=== PATIENT | female | born 1970 | race Caucasian/White ===

== ENCOUNTER → 2016-10-28 | Outpatient (CLI) | payer BC ==
[~2016-10-28] MED LIST: ADVIN10050 INH
== END | disposition home or self-care (01) ==
LOC: C.PAPS 11:54
DX: Z01.419 Encounter for gynecological examination (general) (routine) without abnormal findings (principal)

== ENCOUNTER 2017-01-19 16:21 | Emergency (ER) | payer BC ==
[~2017-01-19] VITALS: Ht 170.2 cm; Wt 59.1 kg
[2017-01-19 16:24] VITALS: Ht 170.2 cm; Wt 59.1 kg
[2017-01-19] MEDS ORDERED: ASPIRIN 81 MG CHEW PO STA (16:55)
[2017-01-19 17:33] LABS: BASO % 0.3 %; BASO ABS # 0.03 K/uL (0-0.2); COMPLETE YES; EOS % 3.8 %; HEMATOCRIT 40.2 % (37-47); IG% 0.1 %; LYMPH % 22.9 %; LYMPH ABS # 2.34 K/uL (1.2-3.4); MEAN CELL VOLUME 87.6 fL (80-100); MEAN CORPUSCULAR HEMOGLOBIN 29.6 pg (25-34); MEAN CORPUSCULAR HGB CONC 33.8 g/dl (32-36); MEAN PLATELET VOLUME 10.1 fL (7.4-10.4); MONO % 6.9 %; PLATELET COUNT 233 K/uL (130-400); RED BLOOD COUNT 4.59 M/uL (4.2-5.4); WHITE BLOOD COUNT 10.23 K/uL (4.8-10.8)
[2017-01-19 17:41] LABS: BLOOD UREA NITROGEN 13 mg/dl (7-18); BUN/CREATININE RATIO 18.5 (10-20); CALCIUM 8.5 mg/dl (8.5-10.1); CARBON DIOXIDE 30 mmol/L (21-32); CHLORIDE 108 mmol/L (98-107); CREATININE 0.68 mg/dl (0.60-1.20); GLUCOSE 123 mg/dl (70-99); POTASSIUM 3.4 mmol/L (3.5-5.1); SODIUM 144 mmol/L (136-145)
[2017-01-19 17:45] LABS: CKMB/CK RATIO 1.7 (0-3.0)
--- NOTE | 2017-01-19 17:45 | DIAGNOSTIC IMAGING REPORT ---
CHEST ONE VIEW PORTABLE CLINICAL HISTORY: Chest Pain dyspnea COMPARISON STUDY: No previous studies for comparison. FINDINGS: The bones soft tissues and hemidiaphragms are normal. The cardiomediastinal silhouette is normal. The lungs are clear. The pulmonary vasculature is normal. IMPRESSION: Negative chest. Electronically signed by: Moe Warren M.D. 01/19/2017 5:44 PM Dictated Date/Time: 01/19/2017 5:44 PM
[2017-01-19] MEDS ORDERED: KETOROLAC TROMETHAMINE 30 MG/ML VIAL IV STA (18:36)
[2017-01-19 19:20] VITALS: BP 120/78; PULSE 79; TEMP 37; O2SAT 99
--- NOTE | 2017-01-19 22:17 | EMERGENCY ROOM VISIT NOTE ---
History Report prepared by Eron: Veda Peterson Under the Supervision of: Dr. Luther Ibanez D.O. First contact with patient: 16:40 Chief Complaint: REFERRED BY DOCTOR Stated Complaint: CARDIAC ASSESSMENT,SENT BY History of Present Illness The patient is a 46 year old female who presents to the Emergency Room with complaints of persistent chest tightness starting this morning. One week ago, she had some left arm tingling. She also had pain when she lifted up her arm. She went to the walk in clinic and did an EKG. She was told to follow up with her PCP for an echo. Yesterday she started having a shooting and throbbing pain through her left nipple. She experienced it once yesterday evening and it woke her in the middle of the night last night. The pain is currently aching. The pain worsens with breathing. It does not change with palpation. She states that it feels like there is something sitting on her chest and this has been present since this morning but feels like her asthma. She has a history of seasonal asthma. Her chest tightness does feel like her asthma, but her inhaler has not been helping. Her chest tightness has also never been this severe. She feels like she cannot breathe. She denies any rashes or swelling of the calves. She denies any history of diabetes, hypertension, CAD or high cholesterol. She does not smoke. She admits to occasional alcohol use. She recently went on a trip. She denies any history of cancer, swelling of her calves, hemoptysis, previous blood clots. She denies any estrogen use. She had an echo 2 years ago which was normal. Source of History: patient Onset: this morning Position: chest Quality: other (tightness) Timing: other (persistent) Associated Symptoms: + SOB, No rash Note: Pt reports shooting pain through nipple, left arm tingling, left arm pain. Pt denies calf swelling. Review of Systems See HPI for pertinent positives & negatives. A total of 10 systems reviewed and were otherwise negative. Past Medical & Surgical Medical Problems: (1) Asthma Surgical Problems: (1) History of eye surgery Family History Diabetes mellitus FH: cancer FH: heart disease Hypertension Social History Smoking Status: Never Smoker Alcohol Use: occasionally Marital Status: Housing Status: lives with family Occupation Status: employed Current/Historical Medications Scheduled Fluticasone Prop/Salmeterol (Advair Diskus 100-50 Mcg/Dose), 1 PUFFS INH BID Allergies Coded Allergies: Mold (Blue) Cheese (Unverified Allergy, Mild, 02/09/06) POLLEN (Unverified Allergy, Mild, 02/09/06) No Known Allergies (Verified , 02/09/06) Uncoded Allergies: HORSES (Allergy, Mild, 02/09/06) CATS POLLEN (Allergy, Unknown, 10/13/02) N (Allergy, Unknown, 10/13/02) N0 (Allergy, Unknown, 10/13/02) NKDA (Allergy, Unknown, 10/13/02) NO (Allergy, Unknown, 10/13/02) Physical Exam Vital Signs Date Time Temp Pulse Resp B/P Pulse Ox O2 Delivery O2 Flow Rate FiO2 01/19/17 19:20 37.0 79 20 120/78 99 01/19/17 18:26 79 20 120/78 99 Room Air 01/19/17 16:24 37.0 79 18 117/77 98 Room Air Physical Exam GENERAL: sitting up in bed, alert, well appearing, well nourished, no distress, non-toxic EYE EXAM: normal conjunctiva OROPHARYNX: no exudate, no erythema, lips, buccal mucosa, and tongue normal and mucous membranes are moist NECK: supple, no nuchal rigidity, no adenopathy, non-tender LUNGS: Clear to auscultation. Normal chest wall mechanics HEART: no murmurs, S1 normal and S2 normal ABDOMEN: abdomen soft, non-tender, normo-active bowel sounds, no masses, no rebound or guarding. BACK: Back is symmetrical on inspection and there is no deformity, no midline tenderness, no CVA tenderness. SKIN: no rashes and no bruising UPPER EXTREMITIES: upper extremities are grossly normal. Radial pulses equal bilaterally. LOWER EXTREMITIES: No pitting edema. Calves equal bilaterally. NEURO EXAM: Normal sensorium, cranial nerves II-XII grossly intact, normal speech, no gross weakness of arms, no gross weakness of legs. Medical Decision & Procedures ER Provider Diagnostic Interpretation: Xray results as stated below per my and the radiologist's interpretation: CHEST ONE VIEW PORTABLE CLINICAL HISTORY: Chest Pain dyspnea COMPARISON STUDY: No previous studies for comparison. FINDINGS: The bones soft tissues and hemidiaphragms are normal. The cardiomediastinal silhouette is normal. The lungs are clear. The pulmonary vasculature is normal. IMPRESSION: Negative chest. Electronically signed by: Moe Warren M.D. 01/19/2017 5:44 PM Dictated Date/Time: 01/19/2017 5:44 PM Laboratory Results 01/19/17 17:15 Red Blood Count 4.59, Mean Corpuscular Volume 87.6, Mean Corpuscular Hemoglobin 29.6, Mean Corpuscular Hemoglobin Concent 33.8, Mean Platelet Volume 10.1, Neutrophils (%) (Auto) 66.0, Lymphocytes (%) (Auto) 22.9, Monocytes (%) (Auto) 6.9, Eosinophils (%) (Auto) 3.8, Basophils (%) (Auto) 0.3, Neutrophils # (Auto) 6.75, Lymphocytes # (Auto) 2.34, Monocytes # (Auto) 0.71, Eosinophils # (Auto) 0.39, Basophils # (Auto) 0.03 01/19/17 17:15 Test 01/19/17 17:15 01/19/17 19:15 White Blood Count 10.23 K/uL (4.8-10.8) Red Blood Count 4.59 M/uL (4.2-5.4) Hemoglobin 13.6 g/dL (12.0-16.0) Hematocrit 40.2 % (37-47) Mean Corpuscular Volume 87.6 fL (80-100) Mean Corpuscular Hemoglobin 29.6 pg (25-34) Mean Corpuscular Hemoglobin Concent 33.8 g/dl (32-36) Platelet Count 233 K/uL (130-400) Mean Platelet Volume 10.1 fL (7.4-10.4) Neutrophils (%) (Auto) 66.0 % Lymphocytes (%) (Auto) 22.9 % Monocytes (%) (Auto) 6.9 % Eosinophils (%) (Auto) 3.8 % Basophils (%) (Auto) 0.3 % Neutrophils # (Auto) 6.75 K/uL (1.4-6.5) Lymphocytes # (Auto) 2.34 K/uL (1.2-3.4) Monocytes # (Auto) 0.71 K/uL (0.11-0.59) Eosinophils # (Auto) 0.39 K/uL (0-0.5) Basophils # (Auto) 0.03 K/uL (0-0.2) RDW Standard Deviation 41.9 fL (36.4-46.3) RDW Coefficient of Variation 13.1 % (11.5-14.5) Immature Granulocyte % (Auto) 0.1 % Immature Granulocyte # (Auto) 0.01 K/uL (0.00-0.02) D-Dimer < 190 ug/L FEU (0-500) Anion Gap 6.0 mmol/L (3-11) Est Creatinine Clear Calc Drug Dose 97.5 ml/min Estimated GFR () 122.4 Estimated GFR (Non- 105.6 BUN/Creatinine Ratio 18.5 (10-20) Calcium Level 8.5 mg/dl (8.5-10.1) Total Creatine Kinase 41 U/L (26-192) Creatine Kinase MB 0.7 ng/ml (0.5-3.6) Creatine Kinase MB Ratio 1.7 (0-3.0) Troponin I < 0.015 ng/ml (0-0.045) Laboratory results per my review. Medications Administered Medications (Trade) Dose Ordered Sig/Dru Route Start Time Stop Time Status Last Admin Dose Admin Aspirin (Aspirin Chew) 324 mg NOW STAT PO 01/19/17 16:55 01/19/17 16:56 DC 01/19/17 17:13 324 MG ECG Indication: chest pain Rate (beats per minute): 74 Rhythm: sinus rhythm Findings: no ectopy, other (normal axis) ED Course ED COURSE: Vital signs were reviewed and showed normal vitals. The patients medical record was reviewed The above diagnostic studies were performed and reviewed. ED treatments and interventions as stated above. 1645: The patient was evaluated in room B11B. A complete history and physical examination was performed. 1655: Aspirin 324 mg PO. 183: Toradol Inj 30 mg IV. 1837: Upon reevaluation, the patient is resting comfortably.I discussed my findings with the patient and she understands and agrees with the treatment plan. She states that she came to the ED primarily for an echo. I presented the option of observation overnight, but she declined and prefers a repeat troponin in 2 hours. She would like to leave and be notified of the results. Her shoulder pain and numbness is worse with AV duction and she denies any weakness. She declines Toradol, nebulizer treatment, or additional imaging. Based on the patients age, coexisting illnesses, exam and lab findings the decision to treat as an outpatient was made. The patient remained stable while under my care. The patient appeared well at the time of discharge. Medical Decision Differential diagnoses includes but is not limited to acute coronary syndrome, myocardial infarction, pericarditis, pulmonary embolus, aortic dissection, pneumonia, pneumothorax, musculoskeletal, shingles, esophageal. Patient is a 46-year-old female who presents the ER for chest pain associated with shortness of breath. She admits to left arm pain which has been present for the past week and is worsened with elevating her arm/AB ducting her arm. There is no focal deficit. I do believe this is musculoskeletal. She also admits to chest pain associated with shortness of breath. She also has a component of a sharp stabbing pain which was present last night. Pain has been present since this morning. She notes shortness of breath does feel like her asthma but is not improved with neb treatment. She has no cardiac risk factors and her only PE risk factor is travel. Vitals were unremarkable. She notes that she presented today to obtain an echo as she is concerned that she may have Marfan's. She has been worked up for this in the past and had a normal echo and was not diagnosed with Marfan's at that time. I informed her that we will not be able to get an emergent echo while in the ER by did offer her admission. She preferred to simply have the blood work and she wanted to go home as she had a field trip tomorrow. I explained the risk and benefits of this and she understood. Patient left following the second lab draw of her troponin which eventually resulted and was negative. I explained per the heart score she with 2 negative troponins would be around 1% risk for cardiac event. I offered a CT dissection study but she says that she just wanted to get an echo to compare her previous echo. D-dimer was negative. This puts are extremely low risk for PE. I did update her regards these findings and she left following informed refusal of care. Discussed with Pt concerning signs and symptoms to watch out for. Pt was instructed to follow up with their PCP and discussed with the patient their option to return to the ED at anytime for persistent or worsening symptoms. The appropriate anticipatory guidance and out- patient management, including indications for return to the emergency department , were explained at length to the patient and understood. Impression Primary Impression: Precordial chest pain Additional Impression: Hypokalemia Scribe Attestation The scribe's documentation has been prepared under my direction and personally reviewed by me in its entirety. I confirm that the note above accurately reflects all work, treatment, procedures, and medical decision making performed by me. Departure Information Dispostion Home / Self-Care Referrals Ramiro Cruz Jr,D.O. (PCP) Forms HOME CARE DOCUMENTATION FORM, IMPORTANT VISIT INFORMATION, WORK / SCHOOL INSTRUCTIONS Patient Instructions ED Chest Pain [facility]evan, My [facility] Additional Instructions Please follow up with your primary care doctor with in the next 24 hours. Any worsening of your symptoms, please return to the ED immediately. This includes worsening or recurrence of her chest pain, shortness of breath, passing out, or any other concerning signs or symptoms from your standpoint. If you're a repeat heart enzyme does come back positive you will receive call from us and need to return to the ER. If not please follow up with your primary care doctor as stated above. Problem Qualifiers
== END 2017-01-19 19:21 | disposition home or self-care (01) ==
LOC: C.EDB 16:22
DX: R07.2 Precordial pain (principal); E87.6 Hypokalemia; J45.909 Unspecified asthma, uncomplicated; Z98.890 Other specified postprocedural states; Z91.09 Other allergy status, other than to drugs and biological substances; Z83.3 Family history of diabetes mellitus; Z80.9 Family history of malignant neoplasm, unspecified; Z82.49 Family history of ischemic heart disease and other diseases of the circulatory system

== ENCOUNTER → 2017-02-18 | Outpatient (CLI) | payer BC ==
--- NOTE | 2017-02-19 09:06 | MAMMOGRAPHY REPORT ---
BILATERAL FIRST EVER DIGITAL SCREENING MAMMOGRAM WITH CAD: 02/18/2017 CLINICAL HISTORY: Baseline examination. Bilateral augmentation. TECHNIQUE: Bilateral CC and MLO views of the breasts with and without implant displacement views were obtained. Current study was also evaluated with a Computer Aided Detection (CAD) system. COMPARISON: No prior exams were available for comparison. BREAST COMPOSITION: The tissue of both breasts is heterogeneously dense, which may obscure small mas ses. FINDINGS: Bilateral subpectoral silicone implants are in place. There are asymmetries in the latera l posterior right breast, superior posterior right breast, medial posterior left breast and posterior left breast along the posterior nipple line on the MLO view, best seen on the implant displaced view s for which additional spot compression tomosynthesis views and possibly ultrasound are recommended. These could possibly represent cysts or normal fibroglandular tissue. No spiculated mass, focal area of architectural distortion or suspicious calcifications are seen bila terally. IMPRESSION: ACR BI-RADS CATEGORY 0: INCOMPLETE EVALUATION: NEED ADDITIONAL IMAGING EVALUATION The asymmetries in both breasts best seen on the implant displaced views need additional imaging eval uation. The patient will be called to schedule an appointment. Approximately 10% of breast cancers are not detected with mammography. A negative mammographic report should not delay biopsy if a clinically suggestive mass is present. Maddy Almodovar M.D. ay/:02/18/2017 17:12:35 Medical Research Tech: Suzette Cuadra, [facility] letter sent: Addl Imaging 0 BI-RADS Code: ACR BI-RADS Category 0: Incomplete Evaluation: Need Additional Imaging Evaluation
== END | disposition home or self-care (01) ==
LOC: C.MAMM 15:42
DX: Z12.31 Encounter for screening mammogram for malignant neoplasm of breast (principal); Z98.82 Breast implant status; N64.9 Disorder of breast, unspecified

== ENCOUNTER → 2017-02-27 | Outpatient (CLI) | payer BC ==
--- NOTE | 2017-02-27 15:23 | MAMMOGRAPHY REPORT ---
BILATERAL DIGITAL DIAGNOSTIC MAMMOGRAM TOMOSYNTHESIS AND TARGETED BILATERAL ULTRASOUND: 02/27/2017 CLINICAL HISTORY: Callback from screening mammogram for bilateral asymmetries. The patient reported an episode of shooting pain behind her left nipple approximately one month ago; she has had no furthe r episodes of pain since that time. She denies any nipple discharge. TECHNIQUE: Breast tomosynthesis in addition to standard 2D mammography was performed. Bilateral CC and MLO implant displaced spot compression 2-D and tomosynthesis images were obtained. COMPARISON: Comparison is made to exam dated: 02/18/2017 mammogram - [facility]. BREAST COMPOSITION: The tissue of both breasts is heterogeneously dense, which may obscure small mas ses. FINDINGS: The previously described bilateral asymmetries efface on the additional spot compression v iews, without suspicious masses or architectural distortion noted on the additional views. Targeted ultrasound was performed of the right superior breast and left medial breast in the region o f the mammographic asymmetries. Multiple circumscribed anechoic masses are seen throughout the right superior and left medial breast, the largest measuring 6 x 7 mm in the left breast at 10:00, 3 cm fr om the nipple. The masses are benign and consistent with cysts. Ultrasound was performed of the lef t subareolar breast to evaluate the site of prior pain described by the patient. Focal duct ectasia is seen within the left inferior subareolar breast. Within the dilated duct there is an oval hypoech oic mass versus intraductal debris which measures 9 x 5 x 7 mm. The mass is indeterminant and may re present a papilloma. Recommend ultrasound guided biopsy for further evaluation. The patient denies any left nipple discharge. IMPRESSION: ACR BI-RADS CATEGORY 4A: LOW SUSPICION FOR MALIGNANCY, TARGETED ULTRASOUND ACR BI-RADS C ATEGORY 4A: LOW SUSPICION FOR MALIGNANCY 1. Bilateral asymmetries efface on the additional views. No suspicious corresponding sonographic ab normalities are evident, with multiple small benign cysts seen in bilateral breasts on the ultrasound exam. The asymmetries are benign and may represent small cysts versus normal fibroglandular tissue. 2. Possible 9 mm intraductal mass versus debris in the left inferior subareolar breast, in the regio n of prior pain described by the patient. Recommend ultrasound-guided core needle biopsy for further evaluation. This could represent a papilloma versus intraductal debris. A phone call was made to the physician's office to confirm faxed results were received. The patient has been verbally notified of the results. She tentatively scheduled the biopsy before leaving the [facility]. Approximately 10% of breast cancers are not detected with mammography. A negative mammographic report should not delay biopsy if a clinically suggestive mass is present. Loraine Tam M.D. ah/:02/27/2017 12:02:49 Clerk Secretary: Suzette Cuadra, [facility] letter sent: Abnormal 4/5 BI-RADS Code: ACR BI-RADS Category 4A: Low Suspicion For Malignancy Ultrasound BI-RADS: ACR BI-RADS Category 4A: Low Suspicion For Malignancy
== END | disposition home or self-care (01) ==
LOC: C.MAMM 10:44
DX: N64.9 Disorder of breast, unspecified (principal)

== ENCOUNTER → 2017-03-05 | Outpatient (CLI) | payer BC ==
--- NOTE | 2017-03-05 11:19 | Discharge Instructions ---
Discharge Instructions Procedure Procedure Date: Mar 05, 2017. Reason for visit: Left Mass. Discharge Discharge Date: Mar 05, 2017. Discharge Diagnosis: status post breast biopsy Instructions Activity Recommendations: Additional Limitations (see below) Return to School/Work: no limitations Recommended Home Diet: No Limitations Provider Instructions: ACTIVITY RECOMMENDATIONS: * No lifting, pushing, pulling or exercising the affected side for three days. RETURN TO SCHOOL/WORK: * You may return to work/school after the procedure, but do not perform any strenuous activities for 24 to 48 hours. MEDICATIONS: * Tylenol (two 325 mg) every four to six hours if needed for mild pain (if not allergic to Tylenol). DIET: * Resume previous diet. SPECIAL CARE INSTRUCTIONS: * Keep biopsy site dry for 24 hours. May shower after 24 hours, but do not soak (bathe) incision. * May remove Tegaderm (plastic patch) tomorrow AFTER showering. * Leave the steri-strips on for one week. Allow the steri-strips to fall off by themselves. If not off after one week, you may remove them. You may place a Bandaid crosswise over the strips, if desired. * Apply ice 10 minutes on and 10 minutes off as needed. * Wear a bra at bedtime to sleep more comfortably for 2-3 days. * Your referring physician should have the results after approximately 5 to 7 business days. * Call for unusual bleeding, fever, drainage, etc or if you have any questions call during normal business hours or after hours call Dr Tam, [phone]. FOLLOW UP VISIT: Follow-up with Referring Physician as scheduled. Allergies Coded Allergies: Mold (Blue) Cheese (Unverified Allergy, Mild, 02/09/06) POLLEN (Unverified Allergy, Mild, 02/09/06) No Known Allergies (Verified , 02/09/06) Uncoded Allergies: HORSES (Allergy, Mild, 02/09/06) CATS POLLEN (Allergy, Unknown, 10/13/02) N (Allergy, Unknown, 10/13/02) N0 (Allergy, Unknown, 10/13/02) NKDA (Allergy, Unknown, 10/13/02) NO (Allergy, Unknown, 10/13/02) Dyan Glez Recommendations: Call your doctor if: * Temperature above 101 degrees * Pain not relieved by pain medicine ordered * There is increased drainage or redness from any incision * You have any unanswered questions or concerns. Your Doctors Instructions noted above were prepared by provider Loraine Tam. Patient Signature Section: Patient Instructions Signature Page Seema Bush Patient (or Guardian) Signature/Date: I have read and understand the instructions given to me by my caregivers. Caregiver/RN/Doctor Signature/Date: The above-named patient and/or guardian has received patient instructions on this date. + Original Patient Signature Page (only) stays with chart. Please make copy for patient.
--- NOTE | 2017-03-05 13:48 | MAMMOGRAPHY REPORT ---
ULTRASOUND GUIDED BIOPSY LEFT BREAST: 03/05/2017 CLINICAL HISTORY: Left inferior subareolar breast mass. PATIENT CONSENT: The procedure, risks and benefits were discussed with the patient and informed writt en consent was obtained. A timeout was performed immediately prior to the procedure. PROCEDURE DESCRIPTION: Before the procedure, the patient reported that she has had nodularity in her left upper outer breast for years. Targeted ultrasound was performed of the region pointed out by the patient, in the left upper outer quadrant, approximately 8 cm from the nipple, axillary tail region. No suspicious masses or other suspicious sonographic abnormalities are evident in this region. Clinical follow-up is rec ommended. With ultrasound guidance, aseptic technique, and lidocaine as the local anesthetic (1% lidocaine to a nesthetize the skin and 1% lidocaine with epinephrine to anesthetize the deeper tissues), the mass of concern in the left inferior subareolar breast was sampled 4 times with a 14-gauge Achieve biopsy ne edle. Immediately thereafter, with ultrasound guidance, aseptic technique, and lidocaine as the loca l anesthetic, a metallic localizer clip was placed at the biopsy site. Direct pressure was applied t o the site immediately post procedure and hemostasis was achieved. Postprocedure unilateral mammogra ms were performed to confirm clip placement; see separate dictation for details. The patient tolera kerry the procedure without complication. She was given wound care instructions. The specimens were se nt to pathology for analysis. COMPARISON: Comparison is made to exams dated: 02/27/2017 mammogram, 02/18/2017 mammogram, and 02/28/20 17 ultrasound - [facility]. IMPRESSION: ULTRASOUND GUIDED BIOPSY Ultrasound guided core needle biopsy of the left inferior subareolar breast mass, with clip placement . The patient will receive pathology results from her ordering provider. Loraine Tam M.D. ah/:03/05/2017 11:23:09 Public Safety Telecommunicator: Yung SCHILLING)(M), [facility]
--- NOTE | 2017-03-05 13:48 | MAMMOGRAPHY REPORT ---
UNILATERAL LEFT DIGITAL DIAGNOSTIC MAMMOGRAM TOMOSYNTHESIS: 03/05/2017 CLINICAL HISTORY: Status post left breast biopsy. TECHNIQUE: Breast tomosynthesis in addition to standard 2D mammography was performed. Postprocedura l left CC and ML implant-displaced tomosynthesis images including C views were obtained. COMPARISON: Comparison is made to exams dated: 02/27/2017 mammogram, 02/18/2017 mammogram, and 02/28/20 17 ultrasound - [facility]. BREAST COMPOSITION: The tissue of the left breast is heterogeneously dense, which may obscure small masses. FINDINGS: A new biopsy marker clip is seen at the site of the biopsied mass in the left inferior sub areolar breast. No significant postbiopsy hematoma is seen. IMPRESSION: POST PROCEDURE IMAGING FOR MARKER PLACEMENT New biopsy marker clip status post ultrasound-guided biopsy of the left inferior subareolar breast ma ss. Pathology results are pending. Approximately 10% of breast cancers are not detected with mammography. A negative mammographic report should not delay biopsy if a clinically suggestive mass is present. Loraine Tam M.D. ah/:03/05/2017 11:29:28 Well Surveying Engineer: Yung PORTILLO(R)(M), [facility] BI-RADS Code: Post Procedure Imaging For Marker Placement
== END | disposition home or self-care (01) ==
LOC: C.MAMM 10:29
DX: N63 Unspecified lump in breast (principal)

== ENCOUNTER → 2017-04-20 | Outpatient (CLI) | payer BC ==
--- NOTE | 2017-04-20 16:10 | ECHOCARDIOGRAM REPORT ---
*NOTICE TO RECEIVING [employer] This information is strictly Confidential and protected under [place] law. [place] law prohibits you from making any further disclosure of this information unless further disclosure is expressly permitted by the written consent of the person to whom it pertains or is authorized by law. A general authorization for the release of medical or other information is not sufficient for this purpose. Hospital accepts no responsibility if the information is made available to any other person, INCLUDING THE PATIENT. Interpretation Summary * Name: MEGAN ARAGON Study Date: 04/20/2017 01:36 PM BP: 132/69 mmHg * Patient Location: [facility], [place], [facility] BY [facility] HR: 82 * : 1970 (M/d/yyyy) Gender: Female Height: 56 in * Age: 46 yrs Ethnicity: [place] Weight: 130 lb * Ordering Physician: Ramiro Cruz * Referring Physician: Ramiro Cruz D.O. * Performed By: [facility] * * Reason For Study: Chest Pain, Hypermobility Syndrome * BSA: 1.5 m2 * -- Conclusions -- * The left ventricle is hyperdynamic. * No regional wall motion abnormalities noted. * Ejection Fraction = >70 %. * No valvular pathology. Procedure Details * A complete two-dimensional transthoracic echocardiogram was performed (2D, M-mode, Doppler and color flow Doppler). Left Ventricle * The left ventricle is normal in size. * There is normal left ventricular wall thickness. * Ejection Fraction = >70 %. * The left ventricle is hyperdynamic. * No regional wall motion abnormalities noted. Right Ventricle * The right ventricle is normal size. * The right ventricular systolic function is normal as assessed by tricuspid annular plane systolic excursion (TAPSE) (normal >1.5 cm). Atria * The left atrial size is normal. * Right atrial size is normal. * No ASD detected; PFO is not assessed. Mitral Valve * The mitral valve anatomy is normal. * There is no mitral valve stenosis. * There is trace mitral regurgitation. Tricuspid Valve * The tricuspid valve anatomy is normal. * There is no tricuspid stenosis. * Significant tricuspid regurgitation is absent. Aortic Valve * The aortic valve is normal in structure and function. * No hemodynamically significant valvular aortic stenosis. * No aortic regurgitation is present. Pulmonic Valve * The pulmonary valve is not well seen, but the Doppler examination is normal without significant regurgitation or stenosis. Great Vessels * The aortic root is normal size. * The pulmonary artery is not well visualized, but is probably normal size. Pericardium/Pleural * There is no pericardial effusion. Great Vessels * Normal inferior vena cava size and collapsability with sniff indicates a normal right atrial pressure of 3 mmHg MMode 2D Measurements and Calculations IVSd 0.83 cm IVSs 1.1 cm LVIDd 4.5 cm LVIDs 3.0 cm LVPWd 0.85 cm LVPWs 1.1 cm IVS/LVPW 0.98 FS 32.5 % EDV(Teich) 90.2 ml ESV(Teich) 35.1 ml EF(Teich) 61.1 % EDV(cubed) 88.4 ml ESV(cubed) 27.1 ml EF(cubed) 69.3 % % IVS thick 33.3 % % LVPW thick 26.8 % LV mass(C)d 119.2 grams LV mass(C)dI 80.6 grams/m\S\2 LV mass(C)s 94.4 grams LV mass(C)sI 63.9 grams/m\S\2 CO(Teich) 4.3 l/min CI(Teich) 2.9 l/min/m\S\2 SV(Teich) 55.1 ml SI(Teich) 37.3 ml/m\S\2 CO(cubed) 4.8 l/min CI(cubed) 3.2 l/min/m\S\2 SV(cubed) 61.2 ml SI(cubed) 41.4 ml/m\S\2 Ao root diam 2.8 cm Ao root area 6.2 cm\S\2 ACS 1.6 cm LA dimension 2.7 cm asc Aorta Diam 2.6 cm LA/Ao 0.95 LVAd ap4 27.3 cm\S\2 LVLd ap4 7.6 cm EDV(MOD-sp4) 82.0 ml LVAs ap4 12.4 cm\S\2 LVLs ap4 5.9 cm ESV(MOD-sp4) 22.0 ml EF(MOD-sp4) 73.2 % LVAd ap2 28.3 cm\S\2 LVLd ap2 8.4 cm EDV(MOD-sp2) 80.0 ml LVAs ap2 13.6 cm\S\2 LVLs ap2 6.5 cm ESV(MOD-sp2) 24.0 ml EF(MOD-sp2) 70.0 % CO(MOD-sp4) 4.7 l/min CI(MOD-sp4) 3.2 l/min/m\S\2 SV(MOD-sp4) 60.0 ml SI(MOD-sp4) 40.6 ml/m\S\2 CO(MOD-sp2) 4.4 l/min CI(MOD-sp2) 3.0 l/min/m\S\2 SV(MOD-sp2) 56.0 ml SI(MOD-sp2) 37.9 ml/m\S\2 Doppler Measurements and Calculations MV E max rani 60.2 cm/sec MV A max rani 54.3 cm/sec MV E/A 1.1 MV P1/2t max rani 72.6 cm/sec MV P1/2t 73.9 msec MVA(P1/2t) 3.0 cm\S\2 MV dec slope 287.7 cm/sec\S\2 MV dec time 0.26 sec Ao V2 max 129.0 cm/sec Ao max PG 6.7 mmHg Ao max PG (full) 2.0 mmHg LV V1 max PG 4.7 mmHg LV V1 max 108.0 cm/sec PA V2 max 92.8 cm/sec PA max PG 3.4 mmHg TR max rani 213.1 cm/sec
== END | disposition home or self-care (01) ==
LOC: C.CPL 13:08
DX: R07.9 Chest pain, unspecified (principal); E87.0 Hyperosmolality and hypernatremia